=== PATIENT | male | born 1970 | race Hispanic/Latino ===

== ENCOUNTER 2016-08-21 13:16 | Inpatient (IN) | payer MEDICARE ==
[2016-08-21] MEDS ORDERED: PROTONIX IV ONE (13:39)
[2016-08-21] MEDS ORDERED: MORPHINE IV ONE (13:39)
[2016-08-21] MEDS ORDERED: NACL 0.9% 1000 ML 1,000 ML IV ONE (13:40)
[2016-08-21 13:50] LABS: Basophils % (Auto) 0.7 % (0.0-1.8); Eosinophils % (Auto) 0.3 % (0.0-4.3); Hematocrit 27.8 % (35.5-45.6); Hemoglobin 9.1 gm/dl (11.8-15.2); Mean Corpuscular HGB Conc 33 % (32-34); Mean Corpuscular Hemoglobin 31 pg (28-32); Mean Corpuscular Volume 96 fl (84-94); Platelet Count 382 K/mm3 (140-440); Red Blood Count 2.89 M/mm3 (3.65-5.03); Red Cell Distribution Width 15.7 % (13.2-15.2)
[2016-08-21 14:01] LABS: INR 1.07 (0.87-1.13); Partial Thromboplastin Time 24.9 Sec. (24.2-36.6)
[2016-08-21 14:07] LABS: Albumin 2.8 g/dL (3.9-5); Albumin/Globulin Ratio 1.5 %; Alkaline Phosphatase 57 units/L (35-129); Anion Gap 14 mmol/L; Bilirubin,Total < 0.2 mg/dL (0.1-1.2); Blood Urea Nitrogen 21 mg/dL (9-20); Calcium 7.5 mg/dL (8.4-10.2); Carbon Dioxide 26 mmol/L (22-30); Chloride 107.5 mmol/L (98-107); Glucose 124 mg/dL (75-100); Lipase 36 units/L (13-60); Potassium 4.4 mmol/L (3.6-5.0); Sodium 143 mmol/L (137-145); Total Protein 4.7 g/dL (6.3-8.2)
[2016-08-21 14:10] LABS: Alanine Aminotransferase < 5 units/L (7-56)
[2016-08-21] MEDS ORDERED: ZOFRAN ONE (14:12)
[2016-08-21] MEDS ORDERED: NACL ONE (14:16)
[2016-08-21] MEDS ORDERED: ZOFRAN IV ONE ×2 (14:28→18:10)
--- NOTE | 2016-08-21 15:19 | Cat Scan Report ---
FINAL REPORT PROCEDURE: CT ABDOMEN PELVIS W CON TECHNIQUE: Computerized axial tomography of the abdomen and pelvis was performed after the IV injection of iodinated nonionic contrast. HISTORY: Abdominal pain. COMPARISON: CT scan of the abdomen and pelvis dated 07/30/2016. FINDINGS: Visualized lower thorax: No significant abnormality. Liver: Normal size and attenuation. Spleen: Normal size and attenuation. Gallbladder and biliary system: Normal. Pancreas: Normal. Adrenals: Normal. Kidneys: 2 centimeter low-attenuation left renal lesion.. GI tract: Diverticulosis. Normal caliber air-filled appendix. Lymph nodes and mesentery: Stable small perigastric lymph nodes. Vasculature: Mild atherosclerosis. Bladder: Normal. Reproductive organs: Normal. Peritoneum: No free fluid. Musculoskeletal structures: Moderate to severe narrowing of the bilateral hips with osteophytes and subchondral cystic change. Multilevel degenerative changes of the spine. Posterior osteophyte at L2-3. Canal stenosis from L3-L5. Disc bulges at these levels. Other: Bilateral fat filled inguinal hernias. IMPRESSION: No new CT evidence of acute intra abdominal pathology. Colonic diverticulosis. Normal appendix. Low-attenuation left renal lesion unchanged, likely cyst.
--- NOTE | 2016-08-21 15:42 | Emergency Department Report ---
HPI - General Chief Complaint: GI Bleed Time Seen by Provider: 08/21/16 13:27 - HPI HPI: This is a 46-year-old male presents to the emergency department by EMS from home with complaint of chronic but intense abdominal pain that has been going on for months. However the reason the patient called for EMS and came to the emergency department today is the development of nausea and vomiting , along with hematemesis, as well as some bright red blood per rectum. 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 He saw his primary care doctor and was placed on Nexium but it does not appear to be helping with his symptoms. He has a past medical history of osteoarthritis, COPD, GERD, migraine headaches, hypertension and hyperthyroidism. No recent travel or sick contacts at home. He has not taken anything and was not given anything for his symptoms today prior to presentation. ED Past Medical Hx - Past Medical History Hx Hypertension: Yes (FOR 18 YRS) Hx GERD: Yes Hx Arthritis: Yes (osteo) Hx Headaches / Migraines: Yes Hx Psychiatric Treatment: Yes (depression and sleep disorder) Hx COPD: Yes Additional medical history: Hypercholesterolemia, hyperthyroid - Surgical History Additional Surgical History: right ear - Social History Smoking Status: Current Every Day Smoker Substance Use Type: Alcohol - Medications Home Medications: Home Medications Medication Instructions Recorded Confirmed Last Taken Type ALBUTEROL Inhaler [ProAir] 1 puff PO TID PRN 10/31/13 10/03/14 10/02/14 History Fluticasone/Salmeterol [Advair 1 puff PO QDAY 10/31/13 10/03/14 10/02/14 History Diskus 250-50 mcg] Furosemide [Lasix] 20 mg PO BID 10/31/13 10/03/14 10/02/14 History Levothyroxine [Synthroid] 100 mcg PO QDAY 10/31/13 10/03/14 10/02/14 History Lisinopril [Zestril TAB] 40 mg PO QDAY 10/31/13 10/03/14 10/02/14 History QUEtiapine [Seroquel] 300 mg PO QHS 10/31/13 10/03/14 10/02/14 History Simvastatin 40 mg PO QHS 10/31/13 10/03/14 10/02/14 History amLODIPine [Norvasc] 10 mg PO QDAY 10/31/13 10/03/14 10/02/14 History carBAMazepine [Tegretol] 200 mg PO BID 10/31/13 10/03/14 10/02/14 History risperiDONE [Risperdal] 2 mg PO QHS 10/31/13 10/03/14 10/02/14 History HYDROcodone/APAP 10-325 [Tatamy 1 each PO Q6HR PRN #12 tablet 11/01/13 10/03/14 10/01/14 Rx 10-325 mg TAB] Esomeprazole Magnesium [NexIUM] 40 mg PO QDAY 10/01/14 10/03/14 10/02/14 History Ipratropium/Albuterol Sulfate 3 ml IH BID PRN 10/01/14 10/03/14 10/02/14 History [Iprat-Albut 0.5-3(2.5) mg/3 ml] Topiramate [Topamax TAB] 50 mg PO QHS 10/01/14 10/03/14 10/02/14 History carBAMazepine [TEGretol] 200 mg PO Q12HR 10/01/14 10/03/14 10/02/14 History Metoclopramide [Reglan] 10 mg PO Q6H PRN #20 tab 01/11/16 Unknown Rx traMADol [Ultram 50 MG tab] 50 mg PO TID PRN #10 tablet 01/11/16 Unknown Rx ED Review of Systems ROS: Stated complaint: ABDOMINAL PAIN Other details as noted in HPI Comment: All other systems reviewed and negative Constitutional: denies: chills, fever Eyes: denies: eye pain, eye discharge, vision change ENT: denies: ear pain, throat pain Respiratory: denies: cough, shortness of breath, wheezing Cardiovascular: denies: chest pain, palpitations Gastrointestinal: abdominal pain, nausea, vomiting, hematemesis. denies: melena Genitourinary: denies: urgency, dysuria Musculoskeletal: denies: back pain, joint swelling, arthralgia Skin: denies: rash, lesions Neurological: denies: headache, weakness, paresthesias Physical Exam - Physical Exam Vital Signs: Vital Signs 08/21/16 08/21/16 08/21/16 13:06 13:19 13:23 Temperature 98.5 F Pulse Rate 128 H 124 H 120 H Respiratory 17 18 Rate Blood Pressure 116/60 O2 Sat by Pulse 99 99 99 Oximetry 08/21/16 14:00 Temperature Pulse Rate 122 H Respiratory 19 Rate Blood Pressure 80/55 O2 Sat by Pulse 99 Oximetry Physical Exam: GENERAL: The patient is well-developed well-nourished. HEENT: Normocephalic. Atraumatic. Extraocular motions are intact. Patient has moist mucous membranes. Pupils equal reactive to light bilaterally. NECK: Supple. Trachea is midline. CHEST/LUNGS: Clear to auscultation. There is no respiratory distress noted. HEART/CARDIOVASCULAR: Regular. There is mild to moderate tachycardia. There is no gallop rub or murmur. ABDOMEN: Abdomen is soft. Generalized tenderness to palpation of the abdomen. No guarding or rebound tenderness. No peritoneal signs. Patient has normal bowel sounds. There is no abdominal distention. SKIN: There is no rash. There is no edema. There is no diaphoresis. NEURO: The patient is awake, alert, and oriented. The patient is cooperative. The patient has no focal neurologic deficits. The patient has normal speech. MUSCULOSKELETAL: There is no tenderness or deformity. There is no limitation range of motion. There is no evidence of acute injury. RECTAL: There is some mild gross blood seen that is guaiac positive. ED Course Vital Signs 08/21/16 08/21/16 08/21/16 13:06 13:19 13:23 Temperature 98.5 F Pulse Rate 128 H 124 H 120 H Respiratory 17 18 Rate Blood Pressure 116/60 O2 Sat by Pulse 99 99 99 Oximetry 08/21/16 14:00 Temperature Pulse Rate 122 H Respiratory 19 Rate Blood Pressure 80/55 O2 Sat by Pulse 99 Oximetry - Reevaluation(s) Reevaluation #1: Patient later told the admitting hospitalist, Dr. Dominguez, that he had taken about 24 packs of the powder in the past 24 hours. 08/21/16 15:43 ED Medical Decision Making - Lab Data Result diagrams: 08/21/16 13:38 08/21/16 13:38 - Radiology Data Radiology results: report reviewed CT of the abdomen and pelvis with IV contrast shows no new CT evidence of acute intra-abdominal pathology. Colonic diverticulosis. Normal appendix. - Medical Decision Making 46-year-old male presents with abdominal pain, bright red blood per rectum and some hematemesis. Patient's labs are mostly unremarkable other than a hemoglobin of 9.2. It is not a level that requires transfusion but may be dropping more. CT was done of his abdomen and pelvis with IV contrast that shows some colonic diverticulosis without diverticulitis. Otherwise there is no acute intra-abdominal or intrapelvic pathology seen. Patient remains with some tachycardia and had a bout of hypotension that has responded to IV fluid resuscitation. For these reasons the patient will be admitted to hospital for further evaluation and GI consultation. The admitting hospitalist when spoke with the patient and the patient then admitted that he took 24 packets of Goody powder in the past day trying to treat his pain. This may be the cause of the patient's bleeding as he may have some level of ulceration. - Differential Diagnosis gastric or duodenal ulcer, diverticulosis, colitis Critical Care Time: No Critical care attestation.: If time is entered above; I have spent that time in minutes in the direct care of this critically ill patient, excluding procedure time. ED Disposition Clinical Impression: Rectal bleeding Hematemesis Qualifiers: Nausea presence: with nausea Qualified Code(s): K92.0 - Hematemesis; R11.0 - Nausea GI bleed Qualifiers: GI bleed type/associated pathology: unspecified gastrointestinal hemorrhage type Qualified Code(s): K92.2 - Gastrointestinal hemorrhage, unspecified Abdominal pain Qualifiers: Abdominal location: generalized Qualified Code(s): R10.84 - Generalized abdominal pain Diverticulosis Qualifiers: Diverticulosis site: diverticulosis of large intestine Diverticulosis bleeding : diverticulosis with bleeding Qualified Code(s): K57.31 - Diverticulosis of large intestine without perforation or abscess with bleeding Disposition: OP ADMITTED IP TO THIS HOSP Is pt being admited?: Yes Does the pt Need Aspirin: No Condition: Stable Forms: Accompanied Note Time of Disposition: 15:49
--- NOTE | 2016-08-21 16:41 | Event Note ---
Date: 08/21/16 See H/p in reports Acute GI Bleed Near Syncope Goody powder packets 24 in 24 hours. PUD-a high possibility GI consult for EGD HTN Hypothyroidism GERD ROBERT - on xanax Lisinopril held bcoz of orthostasis
[2016-08-21] MEDS ORDERED: DUONEB 0.5 MG-3 MG/3 ML SOLN IH PRN (16:42)
[2016-08-21] MEDS ORDERED: PROAIR IH PRN (16:42)
[2016-08-21] MEDS ORDERED: REGLAN PO PRN (16:42)
[2016-08-21] MEDS ORDERED: ULTRAM PO PRN (16:42)
[2016-08-21] MEDS ORDERED: NON-FORMULARY (Fluticasone/Salmeterol [Advair Diskus 250-50 Mcg] 1 PUFF) PO SCH (16:45)
[2016-08-21] MEDS ORDERED: NON-FORMULARY (Esomeprazole Magnesium [Nexium] 40 MG) PO SCH (16:45)
[2016-08-21] MEDS ORDERED: DULCOLAX PR PRN (16:50)
[2016-08-21] MEDS ORDERED: MILK OF MAGNESIA PO PRN (16:50)
[2016-08-21] MEDS ORDERED: TYLENOL PO PRN (16:50)
[2016-08-21] MEDS ORDERED: PROVENTIL IH PRN (16:56)
[2016-08-21] MEDS ORDERED: NON-FORMULARY (Xanax Tab 1 MG) PO PRN (17:27)
[2016-08-21] MEDS ORDERED: XANAX PO PRN (17:36)
[2016-08-21] MEDS ORDERED: NACL 0.9% 1000 ML 1,000 ML ONE (17:44)
[2016-08-21] MEDS: PROTONIX 80 MG in NACL 0.9% 100 ML IV SCH (18:13)
[2016-08-21] MEDS ORDERED: NACL 0.9% 500 ML 500 ML IV ONE (18:39)
[2016-08-21] MEDS ORDERED: NACL 0.9% 1000 ML IV SCH (19:00)
[2016-08-21] MEDS: DILAUDID IV PRN ×2 (19:41→23:00)
--- NOTE | 2016-08-21 19:55 | History and Physical Report ---
CHIEF COMPLAINT: Acute abdominal pain since morning, more so for one month and also melanotic stools since a.m. HISTORY OF PRESENT ILLNESS: A 46-year-old male comes to the ER by EMS. He complains of intense abdominal pain in the epigastric region. It has been going on for months, but more so for today. Also, nausea and vomiting along with hemetemesis as well as some bright red blood per rectum. 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 The patient was placed on Nexium by his primary care physician. Also, patient took 24 packets of Goody powder over the last 24 hours. No recent travel. No fever. No chills. Feels lightheaded. Epigastric pain which is about 10 on a scale of 1 to 10. Also melenotic stools and hematemesis. PAST MEDICAL HISTORY: Significant for hypertension, gastroesophageal reflux disease, osteoarthritis, migraine headaches, depression and sleep disorder, COPD, hypercholesterolemia, hypothyroidism. PAST SURGICAL HISTORY: Right ear surgery. SOCIAL HISTORY: Smokes about a pack a day. He took 24 Goody powder in the last 24 hours for abdominal pain. CURRENT MEDICATIONS: Albuterol inhaler 2 puffs q.i.d., Flovent Advair 250/50 one puff b.i.d., Lasix 20 mg p.o. b.i.d., Synthroid 100 mcg p.o. daily, Zestril 40 mg p.o. daily, Seroquel 300 mg p.o. daily, simvastatin 40 mg p.o. daily, amlodipine 10 mg p.o. daily, Tegretol 200 mg twice a day, Risperdal 2 mg p.o. at bedtime, [place] one tablet every 6 hours p.r.n., Nexium 40 mg p.o. daily, DuoNeb 3 mL b.i.d., Topamax 50 mg p.o. at bedtime, Tegretol 200 mg p.o. every 12 hours, Reglan 10 mg p.o. every 6 hours., tramadol 50 mg three times a day. REVIEW OF SYSTEMS: Significant for epigastric pain, which is severe and also mild hemetemesis and melanotic stools and being lightheaded. Otherwise, review of systems is essentially negative. PHYSICAL EXAMINATION: GENERAL: A middle-aged male, lying in bed comfortably. VITAL SIGNS: Blood pressure is 80/55 and 116/60 and 116/60 is the first blood pressure. Temperature 98.5, pulse is 124, respiratory rate is 17. HEENT: Slightly pale mucous membranes. Tongue moist. NECK: Supple. No lymphadenopathy. No thyromegaly. LUNGS: Clear to auscultation and percussion. Good air entry. CARDIOVASCULAR: S1, S2 heard. No gallop, no murmur, no rub. Apical impulse in left fifth intercostal space and midclavicular line. ABDOMEN: Soft and benign. No hepatosplenomegaly. No guarding. No rigidity. Hernial orifices are normal. EXTREMITIES: Good pedal pulses. No pedal edema. CENTRAL NERVOUS SYSTEM: Alert and oriented x 4. Nonfocal exam. LABORATORY DATA: White count is 9000, H and H is 9.1 and 27.8, platelet count is 382,000. Sodium is 143, potassium is 4.4, chloride is 107.5, bicarbonate is 23, BUN and creatinine is 21 and 0.2, glucose is 124. CT of the abdomen shows no acute abdominal pathology, colonic diverticulosis. MEDICAL DECISION MAKING AND EMERGENCY DEPARTMENT COURSE: The patient was given IV fluids. Hemoglobin 9.2, hence not transfused. Also, the patient is orthostatic. ASSESSMENT AND PLAN: 1. Acute gastrointestinal bleed. The patient is started on IV Protonix and IV fluids, transfuse if necessary. Hemoglobin and hematocrit to be monitored every 8 hours and also GI consult with Dr. Vasquez requested. The patient otherwise is stable at this point. The patient was advised not to take Goody powder in the future. 2. Gastroesophageal reflux disease. Continue Nexium 40 mg daily. 3. Asthma/chronic obstructive pulmonary disease. Continue Advair Diskus 250/50 one puff b.i.d. Also, take ____ for a possible seizure disorder. 4. Chronic obstructive pulmonary disease. Continue DuoNeb. 5. Hypothyroidism. Continue Synthroid 100 mcg p.o. daily. 6. Hypertension. Continue lisinopril 40 mg p.o. daily. Also, amlodipine 10 mg p.o. daily. 7. Psychiatric disorder and agitation. Risperdal 2 mg p.o. at bedtime. 8. Chronic pain. The patient is on Dilaudid 0.5. We will hold the tramadol. 9. Deep venous thrombosis prophylaxis. No Lovenox. SCDs only. JOB# [id number] JAEL/RA
[2016-08-21] MEDS: PULMICORT IH SCH (20:43)
[2016-08-21] MEDS: BROVANA NEBU IH SCH (20:43)
--- NOTE | 2016-08-21 21:43 | Admit Criteria Form ---
Admission Criteria Documentation: GASTROINTESTINAL BLEEDING, LOWER Clinical Indications for Admission to Inpatient Care ( Place 'X' for any and all applicable criteria): Admission is indicated for ANY ONE of the following(1)(2)(3)(4)(5): [X ]I. Active gross bleeding per rectum [ ]II. Inpatient admission required rather than observation care (Also use Gastrointestinal Bleeding, Lower: Observation Care as appropriate) because of ANY ONE of the following: [ ]a) Hemodynamic instability that is severe or persistent [ ]b) Anemia requiring inpatient admission as indicated by ALL of the following: [ ]1) Presence of significant clinical finding indicated by ANY ONE of the following: [ ]A. Tachycardia for age [ ]B. Orthostatic vital sign changes [ ]C. Cognitive impairment [ ]D. Heart failure [ ]E. Chest pain [ ]F. Exertional dyspnea [ ]G. Other findings suggesting inadequate perfusion (eg, peripheral or myocardial ischemia, end organ dysfunction) [ ]2) Initial (eg, emergency department, observation care) treatment with transfusion or volume replacement is judged inappropriate (due to severity of the finding) or has been ineffective [ ]c) Severe pain requiring acute inpatient management [ ]d) Absent bowel sounds with complete ileus [ ]e) Signs of intestinal obstruction or peritonitis [A] [ ]f) High-risk low platelet count [ ]g) Severe electrolyte abnormalities requiring inpatient care [ ]h) Acute renal failure [ ]i) High fever or infection requiring inpatient admission as indicated by ANY ONE of the following(8)(9): [ ]1) Appropriate outpatient or observation care antimicrobial treatment unavailable, not effective, or not feasible Documented bacteremia [ ]2) Documented bacteremia [ ]3) Temperature greater than 104.9 degrees F ( 40.5 degrees C) (oral) [ ]4) Temperature greater than 103.1 degrees F ( 39.5 degrees C) (oral) or less than 96.8 degrees F (36 degrees C) (rectal) that does not respond to all emergency treatment measures [ ]j) IV fluid to replace significant ongoing losses ( greater than 3 L/m2 per day) [ ]k) Immediate inpatient surgery needed [ ]l) Parenteral nutrition regimen that must be implemented on inpatient basis [ ]m) Other condition, treatment or monitoring requiring inpatient admission [ ]III. Unstable comorbid illness (renal, hepatic, pulmonary, hematologic, neurologic, or cardiac) [ ]IV. Failure to control bleeding after colonoscopy [ ]V. Coagulopathy [ ]. Suspected or known ischemic colitis(6) [ ]VII. Previous aortic graft placement or known aortic aneurysm Extended stay beyond goal length of stay may be needed for(3)(4)(28): [ ]a) Emergency surgery [ ]b) Coagulation abnormalities(26) [ ]c) Recurrent or persistent bleeding, continued vital sign instability(27)( 28) [ ]d) Active comorbidities (eg, renal insufficiency, heart failure, pre- existing liver disease) The original [employer] content created by [employer] has been revised. The portions of the content which have been revised are identified through the use of italic text or in bold, and [facility] has neither reviewed nor approved the modified material. All other unmodified content is copyright [facility]. Please see references footnoted in the original [employer] edition 2016 Admission Criteria Met: Yes
[2016-08-21] MEDS ORDERED: NACL 0.9% 250ML 250 ML ONE (21:55)
[2016-08-21] MEDS: RisperDAL PO SCH (22:00)
[2016-08-21] MEDS ORDERED: NON-FORMULARY (Topiramate [Topamax Tab] 50 MG) PO SCH (22:00)
[2016-08-21] MEDS ORDERED: NON-FORMULARY (Risperidone [Risperdal] 2 MG) PO SCH (22:00)
[2016-08-21] MEDS: LASIX PO SCH (22:00)
[2016-08-21] MEDS: TOPAMAX PO SCH (22:00)
[2016-08-22] MEDS: SYNTHROID PO SCH (06:00)
[2016-08-22] MEDS: PULMICORT IH SCH ×2 (07:23→19:58)
[2016-08-22] MEDS: BROVANA NEBU IH SCH ×2 (07:24→19:58)
[2016-08-22 08:01] LABS: Basophils % (Auto) 0.6 % (0.0-1.8); Eosinophils % (Auto) 0.8 % (0.0-4.3); Hemoglobin 9.6 gm/dl (11.8-15.2); Mean Corpuscular HGB Conc 33 % (32-34); Mean Corpuscular Hemoglobin 31 pg (28-32); Mean Corpuscular Volume 94 fl (84-94); Platelet Count 301 K/mm3 (140-440); Red Blood Count 3.09 M/mm3 (3.65-5.03); Red Cell Distribution Width 16.6 % (13.2-15.2); White Blood Count 8.8 K/mm3 (4.5-11.0)
[2016-08-22 08:17] LABS: Alanine Aminotransferase 5 units/L (7-56); Albumin/Globulin Ratio 1.7 %; Alkaline Phosphatase 52 units/L (35-129); Anion Gap 15 mmol/L; Bilirubin,Total 0.2 mg/dL (0.1-1.2); Blood Urea Nitrogen 14 mg/dL (9-20); Calcium 7.6 mg/dL (8.4-10.2); Carbon Dioxide 26 mmol/L (22-30); Chloride 102.6 mmol/L (98-107); Glucose 124 mg/dL (75-100); Potassium 3.7 mmol/L (3.6-5.0); Sodium 140 mmol/L (137-145); Total Protein 4.8 g/dL (6.3-8.2)
--- NOTE | 2016-08-22 09:50 | Progress Note ---
Assessment and Plan Assessment and plan: Acute GI bleed likely upper GI. Continue Protonix drip. Continue H&H every 8 hours. Last hemoglobin 9.6 after [address] To , GI to see. Anemia due to acute blood loss. Hemoglobin 9.1 on admission now 9.6 after 2 units PRBC. May transfuse further if hemoglobin keeps dropping or if any further bleeding. Hypertension. BP stable. Hypothyroidism. Continue Levothyroxine. COPD stable. Full code status History Interval history: patient presents with vomiting hematemesis and bloody stools, He feels better today, Last hematemesis was last night, last bloody stool last night Hospitalist Physical - Physical exam Narrative exam: Gen: Not in acute distress HEENT: Normocephalic, atraumatic Neck :supple, no JVD Lungs: Crackles left upper lung field, no wheeze Heart S1 and S2 regular, no murmurs no gallop Abdomen:soft, tender epigastric region,, nondistended, normal bowel sounds Ext: No edema, no clubbing or cyanosis Neuro: Awake alert oriented x 3, no focal signs - Constitutional Vitals: Temp Pulse Resp BP Pulse Ox 98.5 F 104 H 20 124/72 97 08/22/16 04:00 08/22/16 07:45 08/22/16 07:45 08/22/16 04:00 08/22/16 07:48 Results - Labs CBC & Chem 7: 08/22/16 07:20 08/22/16 07:20 Labs: Laboratory Last Values WBC 8.8 K/mm3 (4.5-11.0) 08/22/16 07:20 RBC 3.09 M/mm3 (3.65-5.03) L 08/22/16 07:20 Hgb 9.6 gm/dl (11.8-15.2) L 08/22/16 07:20 Hct 29.0 % (35.5-45.6) L 08/22/16 07:20 MCV 94 fl (84-94) 08/22/16 07:20 MCH 31 pg (28-32) 08/22/16 07:20 MCHC 33 % (32-34) 08/22/16 07:20 RDW 16.6 % (13.2-15.2) H 08/22/16 07:20 Plt Count 301 K/mm3 (140-440) 08/22/16 07:20 Lymph % (Auto) 22.3 % (13.4-35.0) 08/22/16 07:20 [place] % (Auto) 8.5 % (0.0-7.3) H 08/22/16 07:20 Eos % (Auto) 0.8 % (0.0-4.3) 08/22/16 07:20 Baso % (Auto) 0.6 % (0.0-1.8) 08/22/16 07:20 Lymph # 2.0 K/mm3 (1.2-5.4) 08/22/16 07:20 [place] # 0.7 K/mm3 (0.0-0.8) 08/22/16 07:20 Eos # 0.1 K/mm3 (0.0-0.4) 08/22/16 07:20 Baso # 0.0 K/mm3 (0.0-0.1) 08/22/16 07:20 Seg Neutrophils % 67.8 % (40.0-70.0) 08/22/16 07:20 Seg Neutrophils # 6.0 K/mm3 (1.8-7.7) 08/22/16 07:20 PT 13.8 Sec. (12.2-14.9) 08/21/16 13:38 INR 1.07 (0.87-1.13) 08/21/16 13:38 APTT 24.9 Sec. (24.2-36.6) 08/21/16 13:38 Sodium 140 mmol/L (137-145) 08/22/16 07:20 Potassium 3.7 mmol/L (3.6-5.0) 08/22/16 07:20 Chloride 102.6 mmol/L (98-107) 08/22/16 07:20 Carbon Dioxide 26 mmol/L (22-30) 08/22/16 07:20 Anion Gap 15 mmol/L 08/22/16 07:20 BUN 14 mg/dL (9-20) 08/22/16 07:20 Creatinine 0.5 mg/dL (0.8-1.5) L D 08/22/16 07:20 Estimated GFR > 60 ml/min 08/22/16 07:20 BUN/Creatinine Ratio 28.00 % 08/22/16 07:20 Glucose 124 mg/dL (75-100) H 08/22/16 07:20 Lactic Acid 1.1 mmol/L (0.7-2.0) 08/21/16 13:38 Calcium 7.6 mg/dL (8.4-10.2) L 08/22/16 07:20 Total Bilirubin 0.2 mg/dL (0.1-1.2) 08/22/16 07:20 AST 7 units/L (5-40) 08/22/16 07:20 ALT 5 units/L (7-56) L 08/22/16 07:20 Alkaline Phosphatase 52 units/L (35-129) 08/22/16 07:20 Total Protein 4.8 g/dL (6.3-8.2) L 08/22/16 07:20 Albumin 3.0 g/dL (3.9-5) L 08/22/16 07:20 Albumin/Globulin Ratio 1.7 % 08/22/16 07:20 Lipase 36 units/L (13-60) 08/21/16 13:38 Salicylates 2.3 mg/dL (2.8-20.0) L 08/21/16 16:48 Blood Type A POSITIVE 08/21/16 13:38 Antibody Screen Negative 08/21/16 13:38 Crossmatch See Detail 08/21/16 13:38
[2016-08-22] MEDS ORDERED: SYNTHROID PO SCH (10:00)
[2016-08-22] MEDS ORDERED: PROTONIX PO SCH (10:00)
[2016-08-22] MEDS ORDERED: ZESTRIL PO SCH ×2 (10:00)
[2016-08-22] MEDS: PROTONIX 80 MG in NACL 0.9% 100 ML IV SCH ×2 (10:11→18:30)
[2016-08-22] MEDS: DILAUDID IV PRN ×4 (10:12→22:25)
[2016-08-22] MEDS: NORVASC PO SCH (10:13)
[2016-08-22] MEDS: LASIX PO SCH ×2 (10:13→22:33)
[2016-08-22] MEDS: D5NS 1,000 ML IV SCH (14:25)
[2016-08-22 16:04] LABS: Hematocrit 29.8 % (35.5-45.6)
[2016-08-22] MEDS: ZOFRAN IV PRN (18:29)
[2016-08-22] MEDS: RisperDAL PO SCH (22:29)
[2016-08-22] MEDS: TOPAMAX PO SCH (22:34)
[2016-08-23 01:14] LABS: Hematocrit 26.8 % (35.5-45.6)
[2016-08-23] MEDS: SYNTHROID PO SCH (05:57)
[2016-08-23] MEDS: DILAUDID IV PRN ×5 (05:58→22:30)
[2016-08-23] MEDS: PULMICORT IH SCH ×2 (08:22→20:23)
[2016-08-23] MEDS: BROVANA NEBU IH SCH ×2 (08:22→20:23)
[2016-08-23] MEDS: NORVASC PO SCH (10:30)
[2016-08-23] MEDS: LASIX PO SCH ×2 (10:31→22:30)
--- NOTE | 2016-08-23 16:08 | Progress Note ---
Assessment and Plan Assessment and plan: Acute upper GI bleed. Continue Protonix drip. Continue H&H every 8 hours. Last hemoglobin 9.0 Dr. To , GI to see. For EGD. He was transfused 2 Units PRBC Anemia due to acute blood loss. May transfuse further if hemoglobin keeps dropping or if any further bleeding. Hypertension. BP stable. Hypothyroidism. Continue Levothyroxine. COPD stable. Full code status History Interval history: patient presents with vomiting hematemesis and bloody stools, No more hematemesis or bloody stool since admitted Hospitalist Physical - Physical exam Narrative exam: Gen: Not in acute distress HEENT: Normocephalic, atraumatic Neck :supple, no JVD Lungs: Crackles left upper lung field, no wheeze Heart S1 and S2 regular, no murmurs no gallop Abdomen:soft, mild tender epigastric region,, nondistended, normal bowel sounds Ext: No edema, no clubbing or cyanosis Neuro: Awake alert oriented x 3, no focal signs - Constitutional Vitals: Temp Pulse Resp BP Pulse Ox 97.6 F 86 18 135/85 100 08/23/16 12:10 08/23/16 12:10 08/23/16 14:56 08/23/16 12:10 08/23/16 12:10 Results - Labs CBC & Chem 7: 08/23/16 00:37 08/22/16 07:20 Labs: Laboratory Last Values WBC 8.8 K/mm3 (4.5-11.0) 08/22/16 07:20 RBC 3.09 M/mm3 (3.65-5.03) L 08/22/16 07:20 Hgb 9.0 gm/dl (11.8-15.2) L 08/23/16 00:37 Hct 26.8 % (35.5-45.6) L 08/23/16 00:37 MCV 94 fl (84-94) 08/22/16 07:20 MCH 31 pg (28-32) 08/22/16 07:20 MCHC 33 % (32-34) 08/22/16 07:20 RDW 16.6 % (13.2-15.2) H 08/22/16 07:20 Plt Count 301 K/mm3 (140-440) 08/22/16 07:20 Lymph % (Auto) 22.3 % (13.4-35.0) 08/22/16 07:20 [place] % (Auto) 8.5 % (0.0-7.3) H 08/22/16 07:20 Eos % (Auto) 0.8 % (0.0-4.3) 08/22/16 07:20 Baso % (Auto) 0.6 % (0.0-1.8) 08/22/16 07:20 Lymph # 2.0 K/mm3 (1.2-5.4) 08/22/16 07:20 [place] # 0.7 K/mm3 (0.0-0.8) 08/22/16 07:20 Eos # 0.1 K/mm3 (0.0-0.4) 08/22/16 07:20 Baso # 0.0 K/mm3 (0.0-0.1) 08/22/16 07:20 Seg Neutrophils % 67.8 % (40.0-70.0) 08/22/16 07:20 Seg Neutrophils # 6.0 K/mm3 (1.8-7.7) 08/22/16 07:20 PT 13.8 Sec. (12.2-14.9) 08/21/16 13:38 INR 1.07 (0.87-1.13) 08/21/16 13:38 APTT 24.9 Sec. (24.2-36.6) 08/21/16 13:38 Sodium 140 mmol/L (137-145) 08/22/16 07:20 Potassium 3.7 mmol/L (3.6-5.0) 08/22/16 07:20 Chloride 102.6 mmol/L (98-107) 08/22/16 07:20 Carbon Dioxide 26 mmol/L (22-30) 08/22/16 07:20 Anion Gap 15 mmol/L 08/22/16 07:20 BUN 14 mg/dL (9-20) 08/22/16 07:20 Creatinine 0.5 mg/dL (0.8-1.5) L D 08/22/16 07:20 Estimated GFR > 60 ml/min 08/22/16 07:20 BUN/Creatinine Ratio 28.00 % 08/22/16 07:20 Glucose 124 mg/dL (75-100) H 08/22/16 07:20 POC Glucose 107 (70-105) H 08/23/16 08:10 Lactic Acid 1.1 mmol/L (0.7-2.0) 08/21/16 13:38 Calcium 7.6 mg/dL (8.4-10.2) L 08/22/16 07:20 Total Bilirubin 0.2 mg/dL (0.1-1.2) 08/22/16 07:20 AST 7 units/L (5-40) 08/22/16 07:20 ALT 5 units/L (7-56) L 08/22/16 07:20 Alkaline Phosphatase 52 units/L (35-129) 08/22/16 07:20 Total Protein 4.8 g/dL (6.3-8.2) L 08/22/16 07:20 Albumin 3.0 g/dL (3.9-5) L 08/22/16 07:20 Albumin/Globulin Ratio 1.7 % 08/22/16 07:20 Lipase 36 units/L (13-60) 08/21/16 13:38 Salicylates 2.3 mg/dL (2.8-20.0) L 08/21/16 16:48 Blood Type A POSITIVE 08/21/16 13:38 Antibody Screen Negative 08/21/16 13:38 Crossmatch See Detail 08/21/16 13:38
[2016-08-23] MEDS: D5NS 1,000 ML IV SCH (18:50)
[2016-08-23] MEDS: ZOFRAN IV PRN (18:50)
[2016-08-23] MEDS: RisperDAL PO SCH (22:30)
[2016-08-23] MEDS: TOPAMAX PO SCH (22:30)
--- NOTE | 2016-08-24 00:10 | Gastroenterology Consultation ---
History of Present Illness - Reason for Consult Consult date: 08/23/16 Diffuse abdominal pain, acute gastrointestinal bleeding. Requesting physician: SIRISHA MONTES - History of Present Illness Patient is a 46-year-old male who presented with a history of diffuse abdominal pain. The pain is described as recurrent. The character of the pain is described as crampy episodic lasting a few seconds to minutes and then becoming relieved. Patient states that he has been having a gnawing pain which has persisted over a sustained period of time. Sometimes it occurs rather spontaneously and then becomes just as suddenly relieved. Patient states that lately however he has been taking non steroidal's because of pain. With this episode, the pain began and following a sustained bouts of the pain, patient developed episodes of nausea vomiting. With recurrent nausea vomiting, he again developed hematemesis and also developed melena. Since he presented however he has not had any overt episodes although he states that he continues to notice blood in his stool. Since his admission, patient reports some interval improvement in his symptoms overall. For the most part although the pain is fairly diffuse, it has been much more epigastric in location. There is no particular periodicity to the pain, there are no particular exacerbating or relieving factors. Most notably preceding this presentation, patient states that he has been taking significant amounts of Goody's powder in particular. Past History Past Medical History: hypertension, hypothyroidism, other (back pain) Past Surgical History: No surgical history Social history: smoking, alcohol abuse Medications and Allergies Allergies Allergy/AdvReac Type Severity Reaction Status Date / Time Penicillins Allergy Unknown Verified 10/31/13 18:38 Home Medications Medication Instructions Recorded Confirmed Last Taken Type ALBUTEROL Inhaler [ProAir] 1 puff PO TID PRN 10/31/13 08/21/16 10/02/14 History Fluticasone/Salmeterol [Advair 1 puff PO QDAY 10/31/13 08/21/16 10/02/14 History Diskus 250-50 mcg] Furosemide [Lasix] 20 mg PO BID 10/31/13 08/21/16 10/02/14 History Levothyroxine [Synthroid] 100 mcg PO QDAY 10/31/13 08/21/16 10/02/14 History Lisinopril [Zestril TAB] 40 mg PO QDAY 10/31/13 08/21/16 10/02/14 History QUEtiapine [Seroquel] 300 mg PO QHS 10/31/13 08/21/16 10/02/14 History amLODIPine [Norvasc] 10 mg PO QDAY 10/31/13 08/21/16 10/02/14 History carBAMazepine [Tegretol] 200 mg PO BID 10/31/13 08/21/16 10/02/14 History risperiDONE [Risperdal] 2 mg PO QHS 10/31/13 08/21/16 10/02/14 History HYDROcodone/APAP 10-325 [Rowe 1 each PO Q6HR PRN #12 tablet 11/01/13 08/21/16 10/01/14 Rx 10-325 mg TAB] Esomeprazole Magnesium [NexIUM] 40 mg PO QDAY 10/01/14 08/21/16 10/02/14 History Ipratropium/Albuterol Sulfate 3 ml IH BID PRN 10/01/14 08/21/16 10/02/14 History [Iprat-Albut 0.5-3(2.5) mg/3 ml] Topiramate [Topamax TAB] 50 mg PO QHS 10/01/14 08/21/16 10/02/14 History carBAMazepine [TEGretol] 200 mg PO Q12HR 10/01/14 08/21/16 10/02/14 History Metoclopramide [Reglan] 10 mg PO Q6H PRN #20 tab 01/11/16 08/21/16 Unknown Rx traMADol [Ultram 50 MG tab] 50 mg PO TID PRN #10 tablet 01/11/16 08/21/16 Unknown Rx Pravastatin 1 mg PO QHS 08/21/16 08/21/16 Unknown History Xanax TAB 1 mg PO TID PRN 08/21/16 08/21/16 Unknown History Active Meds: Active Medications Acetaminophen (Tylenol) 650 mg PO Q4H PRN PRN Reason: Pain MILD(1-3)/Fever >100.5/LUCAS Albuterol (Proventil) 2.5 mg IH Q4HRT PRN PRN Reason: Shortness Of Breath Alprazolam (Xanax) 1 mg PO TID PRN PRN Reason: Anxiety Last Admin: 01/08/17 22:42 Dose: 1 mg Amlodipine Besylate (Norvasc) 10 mg PO QDAY [facility] Last Admin: 08/23/16 10:30 Dose: 10 mg Arformoterol Tartrate (Brovana Nebu) 15 mcg IH Q12HRT [facility] Last Admin: 08/23/16 20:23 Dose: 15 mcg Bisacodyl (Dulcolax) 10 mg [place] QDAY PRN PRN Reason: Constipation unrelieved by [facility] [place] [place] Budesonide (Pulmicort) 0.5 mg IH Q12HRT [facility] Last Admin: 08/23/16 20:23 Dose: 0.5 mg Carbamazepine (Tegretol) 200 mg PO BID [facility] Last Admin: 08/23/16 22:30 Dose: 200 mg Furosemide (Lasix) 20 mg PO BID [facility] Last Admin: 08/23/16 22:30 Dose: 20 mg Hydromorphone HCl (Dilaudid) 1 mg IV Q3H PRN PRN Reason: Pain , Severe (7-10) Last Admin: 08/23/16 22:30 Dose: 1 mg Dextrose/Sodium Chloride (D5ns) 1,000 mls @ 100 mls/hr IV DIRECT [facility] Last Admin: 08/23/16 18:50 Dose: 100 mls/hr Pantoprazole Sodium 80 mg/ (Sodium Chloride) 100 mls @ 10 mls/hr IV DIRECT [facility] PRN Reason: 8 MG/HR Levothyroxine Sodium (Synthroid) 100 mcg PO DAILY@0600 [facility] Last Admin: 08/23/16 05:57 Dose: 100 mcg Magnesium Hydroxide (Milk Of Magnesia) 30 ml PO Q4H PRN PRN Reason: Constipation Metoclopramide HCl (Reglan) 10 mg PO Q6H PRN PRN Reason: Nausea And Vomiting Ondansetron HCl (Zofran) 4 mg IV Q8H PRN PRN Reason: N/V unrelieved by Reglan Last Admin: 08/22/16 18:29 Dose: 4 mg Quetiapine Fumarate (Seroquel) 300 mg PO QHS [facility] Last Admin: 08/23/16 22:30 Dose: 300 mg Risperidone (Risperdal) 2 mg PO QHS [facility] Last Admin: 08/23/16 22:30 Dose: 2 mg Sodium Chloride (Nacl 0.9% 1000 Ml) 999 ml IV NOW [facility] Topiramate (Topamax) 50 mg PO QHS [facility] Last Admin: 08/23/16 22:30 Dose: 50 mg Tramadol HCl (Ultram) 50 mg PO TID PRN PRN Reason: Pain Review of Systems - Review of Systems Constitutional: anorexia, fatigue, poor appetite, chronic pain, no weight loss, no fever, no chills Eyes: no change in vision, no double vision, no excessive tearing, no pain, no discharge, no itching Ears, Nose, Throat: no decreased hearing, no difficulty swallowing, no epistaxis , no hoarseness, no mouth pain Breasts: deferred Cardiovascular: no chest pain, no edema, no palpitations, no rapid/irregular heart beat, no shortness of breath, no syncope Respiratory: no cough, no shortness of breath, no wheezing, no home oxygen Gastrointestinal: abdominal pain, nausea, vomiting, hematemesis, coffee ground emesis, melena, loss of appetite, dyspepsia/bloating Rectal: no pain, no incontinence, no itching, no flatulence Male Genitourinary: deferred Musculoskeletal: no gait dysfunction, no joint pain, no muscle pain, no muscle weakness Integumentary: no rash, no pruritis, no jaundice Neurological: no head injury, no paralysis, no weakness, no parasthesias, no memory loss, no changes in smell/taste, no gait dysfunction, no motor disturbance, no sensory deficit Psychiatric: anxiety, depression, no suicidal ideation Endocrine: no cold intolerance, no heat intolerance Hematologic/Lymphatic: no easy bruising, no easy bleeding, no lymphadenopathy Allergic/Immunologic: no wheezing, no angioedema Exam - Constitutional Vital Signs: Temp Pulse Resp BP Pulse Ox 98.5 F 98 H 16 140/88 96 08/23/16 20:00 08/23/16 20:33 08/23/16 20:33 08/23/16 20:00 08/23/16 20:25 General appearance: no acute distress, well-nourished, obese - EENT Eyes: PERRL, EOM intact ENT: hearing intact, clear oral mucosa, no oropharyngeal erythema, no thrush, no ulcerations - Neck Neck: supple, normal ROM, no rigidity, no enlarged thyroid, no masses or JVD, no cervical LAD, no carotid bruits, no other - Respiratory Respiratory effort: normal Respiratory: bilateral: CTA, negative: diminished, rales, rhonchi, wheezing, other - Breasts Breasts: deferred - Cardiovascular Rhythm: regular Heart Sounds: Present: S1 & S2. Absent: gallop, systolic murmur, diastolic murmur Extremities: no ischemia, No edema, Full ROM Extremity abnormal: edema - Gastrointestinal General gastrointestinal: Present: soft, non-tender, non-distended, normal bowel sounds. Absent: tender, hypoactive bowel sounds, hepatomegaly, splenomegaly Rectal Exam: deferred - Genitourinary Male Genitourinary: deferred - Neurologic Neurological: alert and oriented x3, strength equal bilaterally - Psychiatric Psychiatric: appropriate mood/affect, intact judgment & insight, cooperative - Labs CBC & Chem 7: 08/23/16 00:37 08/22/16 07:20 Lab Results: Laboratory Results - last 24 hr 08/23/16 08/23/16 00:37 08:10 Hgb 9.0 L Hct 26.8 L POC Glucose 107 H Assessment and Plan Abdominal pain Acute gastrointestinal bleeding History of constipation progressive today. Plan: Continue proton pump inhibitors. Monitor hemoglobin and hematocrit. Schedule patient for endoscopic assessment in a.m. Continue fluid resuscitation. Discussion: Regarding patient's presentation, an upper endoscopy should be done to rule out non steroidal-induced mucosal injury. However it also appears the patient should have a colonoscopy to be done in a reasonable time as he has not done so in the past, given his current presentation
[2016-08-24] MEDS: PROTONIX 80 MG in NACL 0.9% 100 ML IV SCH ×2 (01:40→13:21)
[2016-08-24] MEDS: DILAUDID IV PRN ×3 (03:15→12:35)
[2016-08-24 05:44] LABS: Hematocrit 27.1 % (35.5-45.6); Hemoglobin 9.1 gm/dl (11.8-15.2); Mean Corpuscular HGB Conc 34 % (32-34); Mean Corpuscular Hemoglobin 32 pg (28-32); Mean Corpuscular Volume 94 fl (84-94); Platelet Count 277 K/mm3 (140-440); Red Blood Count 2.87 M/mm3 (3.65-5.03); Red Cell Distribution Width 15.6 % (13.2-15.2); White Blood Count 6.2 K/mm3 (4.5-11.0)
[2016-08-24] MEDS: SYNTHROID PO SCH (05:56)
[2016-08-24] MEDS: ZOFRAN IV PRN (06:20)
[2016-08-24] MEDS: BROVANA NEBU IH SCH (07:44)
[2016-08-24] MEDS: PULMICORT IH SCH (07:44)
[2016-08-24] MEDS: LASIX PO SCH (10:16)
[2016-08-24] MEDS: NORVASC PO SCH (10:16)
[2016-08-24] MEDS: D5NS 1,000 ML IV SCH (10:17)
[2016-08-24] MEDS ORDERED: WATER FOR IRRIG STERILE IR ONE (10:21)
--- NOTE | 2016-08-24 10:31 | Anesthesia Day of Surgery ---
Anesthesia Day of Surgery - Day of Surgery Patient Examined: Yes Patient H&P Reviewed: Yes Patient is NPO: Yes
--- NOTE | 2016-08-24 10:39 | Anesthesia Consultation ---
Anesthesia Consult and Med Hx Date of service: 08/24/16 - Airway Anesthetic Teeth Evaluation: Poor (missing upper front teeth) ROM Head & Neck: Adequate Mental/Hyoid Distance: Adequate Mallampati Class: Class III Intubation Access Assessment: Possibly Difficult - Pulmonary Exam CTA: Yes - Cardiac Exam Cardiac Exam: RRR - Pre-Operative Health Status ASA Pre-Surgery Classification: ASA3 Proposed Anesthetic Plan: MAC - Pulmonary Hx Smoking: Yes (CIGARETTES 2 PPD X 34 YRS, QUIT 3 WKS AGO) Hx Asthma: No SOB: Yes COPD: Yes (on breathing treatment) Home Oxygen Therapy: No Hx Pneumonia: No Hx Sleep Apnea: No (High risk for MONICA) - Cardiovascular System Hx Hypertension: Yes (FOR 18 YRS) Hx Heart Attack/AMI: No - Central Nervous System Hx Seizures: No CVA: No Hx Psychiatric Problems: Yes (PTSD, Depression, Personality Disorder, Sleep Disorder) - Gastrointestinal Hx Gastroesophageal Reflux Disease: Yes (on Nexium) - Endocrine Hx Renal Disease: No Hx End Stage Renal Disease: No Hx Liver Disease: No Hx Non-Insulin Dependent Diabetes: No Hx Hypothyroidism: Yes (X 18 YRS) - Hematic Hx Anemia: Yes (Transfused 2 U 08/22/16) - Other Systems Hx Alcohol Use: Yes (2 BEERS PER DAY) Hx Cancer: No Hx Obesity: Yes - Additional Comments Anesthesia Medical History Comments: Hx of ear surgery as a child, stated that " Anesthesiologist gave too much inhalational gas, it caused damage to his nasal chords"
[2016-08-24] MEDS ORDERED: DIPRIVAN 10 MG/ML IV ONE (10:43)
[2016-08-24] MEDS ORDERED: NACL 0.9% 1000 ML 1,000 ML IV SCH (11:00)
--- NOTE | 2016-08-24 11:27 | Post Anesthesia Evaluation ---
- Post Anesthesia Evaluation Patient Participated: Yes Airway Patent: Yes Stable Respiratory Function: Yes Temp > 96.8F: Yes Pain Manageable: Yes Adequeate Hydration: Yes Anesthesia Complications: No Block Receding Appropriately: Not Applicable
--- NOTE | 2016-08-24 11:44 | Gastroenterology Progress Note ---
Assessment and Plan Abdominal pain Acute gastrointestinal bleeding History of constipation progressive today. Plan: Continue proton pump inhibitors. Monitor hemoglobin and hematocrit. Scheduled patient for endoscopic assessment this a.m. Continue fluid resuscitation. Additional recommendations will be made depending on the results of endoscopy Subjective Date of service: 08/24/16 Principal diagnosis: epigastric pain, nausea vomiting, acute gastrointestinal bleeding. Interval history: Overnight patient reports continuing epigastric discomfort. He also continues to have persistent nausea. The pain is mostly crampy in character per patient. He also has observed some blood in his stool sometime last night. Objective - Constitutional Vitals: Temp Pulse Resp BP Pulse Ox 98.1 F 101 H 20 148/86 98 08/24/16 11:07 08/24/16 11:32 08/24/16 11:32 08/24/16 11:32 08/24/16 11:32 General appearance: no acute distress, well-nourished, obese - EENT Eyes: PERRL, EOM intact ENT: hearing intact, clear oral mucosa, dentition normal - Neck Neck: supple, normal ROM, no rigidity, no enlarged thyroid, no masses or JVD - Respiratory Respiratory effort: normal Respiratory: bilateral: CTA, negative: diminished, rales, rhonchi, wheezing - Breasts Breasts: deferred - Cardiovascular Rhythm: regular Heart Sounds: Present: S1 & S2. Absent: systolic murmur, diastolic murmur, rub - Extremities Extremities: no ischemia, pulses intact, pulses symmetrical, Full ROM Extremity abnormal: edema (trace lower extremity edema) - Gastrointestinal General gastrointestinal: Present: soft, tender, normal bowel sounds. Absent: distended, hepatomegaly, splenomegaly, mass Rectal Exam: deferred - Integumentary Integumentary: Present: clear, warm, dry. Absent: erythema, rash - Musculoskeletal Musculoskeletal: normal - Neurologic Neurological: alert and oriented x3, oriented to person, oriented to place, oriented to time - Psychiatric Psychiatric: appropriate mood/affect, intact judgment & insight - Labs CBC & Chem 7: 08/24/16 05:18 08/22/16 07:20 Labs: Laboratory Results - last 24 hr 08/23/16 08/24/16 08:10 05:18 WBC 6.2 RBC 2.87 L Hgb 9.1 L Hct 27.1 L MCV 94 MCH 32 MCHC 34 RDW 15.6 H Plt Count 277 POC Glucose 107 H - Imaging x-ray: image reviewed CT scan: image reviewed Ultrasound: image reviewed
--- NOTE | 2016-08-24 11:53 | Operative Report ---
Operative Report Operative Report: Date of procedure: 08/24/2016 Procedure: Esophagogastroduodenoscopy with multiple mucosal biopsies Attending physician: Kiko To MD [employer] Specialist: Kiko To MD Indication: Patient is a 46-year-old male who presented with severe epigastric pain nausea vomiting and acute gastrointestinal bleeding with associated anemia. An upper endoscopy is done to assess patient regarding the cause of his symptoms so that treatment may be directed based on the findings. Consent: Informed consent was obtained after advising the patient and family regarding nature of this procedure, its indications, potential benefits as well as possible complications including but not limited to bleeding perforation and adverse reaction to medication, infection as well as other cardiopulmonary complications. An informed written and verbal consent was then obtained after due opportunity was provided for questions and answers. Monitoring: Patient was monitored continuously with pulse oximetry and electrocardiographic recordings as well as blood pressure recordings. Vital signs remained stable throughout this procedure with no untoward events. Preoperative assessment: Patient was assessed immediately prior to this procedure for capacity to tolerate monitored anesthesia care and moderate sedation as well as general anesthesia. Patient's ASA classification is 2, Mallampati class is 2, Hyomental distance is 3. Instrument: [employer] video endoscope Medications: Propofol given intravenously in divided doses. For details please refer to anesthesia records. Description of procedure: Patient was placed in the left lateral decubitus position after achieving sedation, the endoscope was introduced into the esophagus under direct vision. It was then advanced beyond the esophagus into the stomach and then beyond the stomach into the duodenum and to the second portion of the duodenum. It was subsequently withdrawn with careful inspection of all mucosal surfaces with the following findings. Findings: Z line was at 38 cm it was irregular. There was some changes in the proximal stomach to suggest underlying gastropathy. There was a large ulcer in the gastric antrum. It measured approximately 2 cm by about 2.5 cm. It had heaped up edges however it also was clean based. Biopsies of the antrum were obtained for histopathology. In the duodenal bulb, patient had an equally large ulcer measured approximately 2.5 cm by about 2.5 cm. Again the ulcer did not have any stigmata. These 2 findings likely represent the site of patient's bleeding. The endoscope was removed after the examination. Impression: Large ulcer in the gastric antrum. Large ulcer in the duodenal bulb. Changes in the proximal stomach as suggested possible underlying gastropathy. Plan: The ulcers may be due to frequent use of non-steroidal anti-inflammatory medications and may have caused the patient's bleeding. I have emphasized to the patient, that it is necessary that he completely avoids non steroidal for now. He should be on high-dose proton pump inhibitors for 8-12 weeks. In addition will also introduce Carafate suspension 1 g every 6 hours. He probably should be on Carafate for at least 4-6 weeks. The pathology report will be followed and additional treatment directed based on the pathology report. Patient must have a repeat endoscopy after 8-12 weeks of treatment to check for healing of these ulcers. I also suggested to patient that in light of his anemia, he may still benefit from a colonoscopic assessment since he has never had one. This however can be done as an outpatient. I have also emphasized to patient the absolute necessity for compliance with his medications in light of the endoscopic findings. It is absolutely imperative that patient must take his medications. It is equally imperative that patient was avoid non-steroidal's. These have been emphasized in full detail to patient. The risk of taking non steroidals include further bleeding possible perforation and other adverse events. These have been explained in full measure to patient. Additional steps were taken in follow-up.
--- NOTE | 2016-08-24 15:28 | Discharge Summary ---
Providers - Providers Date of Admission: 08/21/16 18:10 Date of discharge: 08/24/16 Attending physician: RUBÉN BOWEN 08/22/16 09:49 Consult to Physician [CONS] Routine Consulting Provider: FAREED SCHWARTZ Reason For Exam: GI bleed Place consult to:: Dr. Schwartz Notified:: spoke with dr. schwartz Primary care physician: MAKE UP OPERATOR Hospitalization Condition: Stable Hospital course: Smoking cessation counseling done patient strongly advised to quit tobacco use, advised nicotine patch This and consequences of ongoing tobacco use explained to the patient verbalized understanding, spent 10 minutes counseling the patient Disposition: DISCHARGED TO HOME OR SELFCARE Exam - Constitutional Vitals: Temp Pulse Resp BP Pulse Ox 98.2 F 94 H 16 126/85 98 08/24/16 13:00 08/24/16 13:00 08/24/16 13:00 08/24/16 13:00 08/24/16 11:32 Plan Diet: low salt, advance as tolerated Special Instructions: smoking cessation Additional Instructions: Avoid NSAIDs aspirin and steroids. If you have severe epigastric pain or GI bleeding contact MD or go to emergency room Follow up with: PRIMARY CAREMD [Primary Care Provider] - 3-5 Days FAREED SCHWARTZ MD [Staff Physician] - 7 Days Forms: Accompanied Note Prescriptions: Pantoprazole [Protonix] 40 mg PO BID #30 tablet Sucralfate [Carafate] 1 gm PO Q6HR 30 Days
[2016-08-24 16:45] VITALS: BP 126/79
[2016-08-24] MEDS ORDERED: CARAFATE PO SCH (18:00)
== END 2016-08-24 18:10 | disposition home or self-care (01) | DRG 378 ==
LOC: ED 13:16 → 3A 18:10 → 2B-SURG 19:25
PROVIDERS: ADMIT Internal Medicine; ATTEND Internal Medicine
PROC: 0DB68ZX Excision of Stomach, Via Natural or Artificial Opening Endoscopic, Diagnostic (ICD-10-PCS; principal; 2016-08-24)
PROC: 0DB98ZX Excision of Duodenum, Via Natural or Artificial Opening Endoscopic, Diagnostic (ICD-10-PCS; 2016-08-24)
DX: K92.2 Gastrointestinal hemorrhage, unspecified (principal); D62 Acute posthemorrhagic anemia; K21.9 Gastro-esophageal reflux disease without esophagitis; J45.909 Unspecified asthma, uncomplicated; J44.9 Chronic obstructive pulmonary disease, unspecified; E03.9 Hypothyroidism, unspecified; I10 Essential (primary) hypertension; M19.90 Unspecified osteoarthritis, unspecified site; E05.90 Thyrotoxicosis, unspecified without thyrotoxic crisis or storm; E78.00 Pure hypercholesterolemia, unspecified; F32.9 Major depressive disorder, single episode, unspecified; F17.210 Nicotine dependence, cigarettes, uncomplicated; I25.10 Atherosclerotic heart disease of native coronary artery without angina pectoris; F29 Unspecified psychosis not due to a substance or known physiological condition; G89.29 Other chronic pain; Z88.0 Allergy status to penicillin; Z98.890 Other specified postprocedural states; Z79.899 Other long term (current) drug therapy
CPT/HCPCS: 36415; 74177; 80053; 80320; 82140; 82271; 82962; 83690; 85014; 85018; 85025; 85027; 85610; 85730; 86850; 86900; 86901; 86920; 88305; 88342; 93005; 93010; 94640; 94760; 96361; 96374; 96375; 96376; C9113; G0480; J1170; J2270; J2405; J2704; J7030; J7042; J7050; P9016; Q9967

== ENCOUNTER 2016-10-18 11:07 | Day surgery (SDC) | payer MEDICARE ==
[2016-10-18] MEDS ORDERED: NACL 0.9% 1000 ML 1,000 ML IV SCH (13:00)
[2016-10-18] MEDS ORDERED: NACL 0.9% NEBU ONE (13:43)
[2016-10-18] MEDS ORDERED: PROVENTIL IH NR (13:45)
[2016-10-18] MEDS ORDERED: WATER FOR IRRIG STERILE ONE (14:15)
[2016-10-18] MEDS ORDERED: WATER FOR IRRIG STERILE IR ONE (14:15)
--- NOTE | 2016-10-18 14:18 | Anesthesia Consultation ---
Anesthesia Consult and Med Hx Date of service: 10/18/16 - Airway Anesthetic Teeth Evaluation: Poor ROM Head & Neck: Adequate Mental/Hyoid Distance: Inadequate Mallampati Class: Class III Intubation Access Assessment: Possibly Difficult - Pulmonary Exam CTA: No (wheezing bilaterally) - Cardiac Exam Cardiac Exam: RRR - Pre-Operative Health Status ASA Pre-Surgery Classification: ASA3 Proposed Anesthetic Plan: MAC - Pulmonary Hx Smoking: Yes (CIGARETTES 2 PPD X 34 YRS - current smoker) Hx Asthma: No SOB: Yes COPD: Yes Home Oxygen Therapy: No Hx Pneumonia: No Hx Sleep Apnea: No (High risk for MONICA) - Cardiovascular System Hx Hypertension: Yes Hx Heart Attack/AMI: No Hx Peripheral Vascular Disease: Yes - Central Nervous System Hx Neuromuscular Disorder: Yes (spina bifida uses walker, spinal stenosis) Hx Seizures: No CVA: No Hx Psychiatric Problems: Yes (PTSD, Depression, Personality Disorder, Sleep Disorder) - Gastrointestinal Hx Ulcer: Yes (BLEEDING ULCERS) Hx Gastroesophageal Reflux Disease: Yes (on Nexium) - Endocrine Hx Renal Disease: No Hx End Stage Renal Disease: No Hx Liver Disease: No Hx Non-Insulin Dependent Diabetes: No Hx Hypothyroidism: Yes - Hematic Hx Anemia: Yes (Transfused 2 U 08/22/16) - Other Systems Hx Alcohol Use: Yes (2 BEERS PER DAY) Hx Cancer: No Hx Obesity: Yes - Additional Comments Anesthesia Medical History Comments: high cholesterol. Patient has bilateral wheezing. Treated with Albuterol nebulizer prior to procedure.
--- NOTE | 2016-10-18 14:19 | Anesthesia Day of Surgery ---
Anesthesia Day of Surgery - Day of Surgery Patient Examined: Yes Patient H&P Reviewed: Yes Patient is NPO: Yes
[2016-10-18] MEDS ORDERED: DIPRIVAN 10 MG/ML IV ONE ×4 (14:29→15:15)
[2016-10-18] MEDS ORDERED: XYLOCAINE MPF 2% ONE (14:33)
--- NOTE | 2016-10-18 14:56 | Post Anesthesia Evaluation ---
- Post Anesthesia Evaluation Patient Participated: Yes Airway Patent: Yes Stable Respiratory Function: Yes Nausea/Vomiting: No Temp > 96.8F: Yes Pain Manageable: Yes Adequeate Hydration: Yes Anesthesia Complications: No Block Receding Appropriately: Not Applicable Patient on Ventilator: No
--- NOTE | 2016-10-18 15:15 | Operative Report ---
Operative Report Operative Report: Date of procedure: 10/18/2016 Procedure: Colonoscopy with multiple hot biopsy polypectomies, polyp ablations. Attending physician: Kiko To MD Caretaker: Kiko To MD Indication: Patient is a 46-year-old male who presented with a personal history of colon polyps. A colonoscopy is done to evaluate patient so that treatment may be directed based on the findings. Consent: Informed consent was obtained after advising the patient and family regarding nature of this procedure, its indications, potential benefits as well as possible complications including but not limited to bleeding perforation and adverse reaction to medication, infection as well as other cardiopulmonary complications. An informed written and verbal consent was then obtained after due opportunity was provided for questions and answers. Monitoring: Patient was monitored continuously with pulse oximetry and electrocardiographic recordings as well as blood pressure recordings. Vital signs remained stable throughout this procedure with no untoward events. Preoperative assessment: Patient was assessed immediately prior to this procedure for capacity to tolerate monitored anesthesia care and moderate sedation as well as general anesthesia. Patient's ASA classification is 2, Mallampati class is 2, Hyomental distance is 3. Instrument: [employer] videocolonoscope Medications: Propofol given intravenously in divided doses. For details please refer to anesthesia records. Description of procedure: Patient was placed in the left lateral decubitus position after achieving sedation, a digital rectal examination was performed following which the colonoscope was introduced into the anal verge and advanced to the cecum which was identified by the cecal valve, the appendiceal orifice, as well as by the cecal strap and direct transillumination. The colonoscope was subsequently withdrawn with careful inspection of all mucosal surfaces. Patient tolerated this procedure well and was subsequently taken to the recovery room. The following findings were noted. Findings: There was some scattered thick liquid stool with solid particulate not undigested food matter seen in various sections of the colon. There were a few diverticula seen in the sigmoid colon and the descending colon. There were 3 polyps in the sigmoid colon these measured between 4-8 mm. 2 of the polyps was sessile 1 was flat which measured approximate 4 mm. All polyps were removed by hot biopsy polypectomy and retrieved. There was a diminutive flat polyp in the rectum. It was ablated. On the retroflex view at the anal verge patient had internal hemorrhoids. Impression: Multiple sigmoid colon polyps status post hot biopsy polypectomy. Diverticular disease of colon. Retained stool. Diminutive flat polyp in the rectum status post ablation. Plan: Follow pathology report. High-fiber diet. Repeat colonoscopy in 5 years.
[2016-10-18 15:49] VITALS: BP 134/90
--- NOTE | 2016-10-18 16:59 | Discharge Summary ---
Short Stay Discharge Plan Activity: advance as tolerated Weight Bearing Status: Weight Bear as Tolerated Diet: regular Additional Instructions: Post Sedation D/C Instructions When you return home you may resume your regular diet unless otherwise directed. -Go directly home from the hospital and rest quietly. You may resume normal activities tomorrow. -Do NOT drive, return to work, operate any machinery or make any important personal or business decisions today. -Do NOT drink any alcohol or take nerve or sleeping drugs. They add to the effects of the medicine still present in your body. Follow up with: FAREED DURAN MD [Primary Care Provider] - 7 Days
== END 2016-10-18 11:08 | disposition home or self-care (01) ==
LOC: GIO 11:07
PROVIDERS: ATTEND Internal Medicine Gastroenterology
DX: D12.5 Benign neoplasm of sigmoid colon (principal); K62.1 Rectal polyp; K57.30 Diverticulosis of large intestine without perforation or abscess without bleeding; K64.8 Other hemorrhoids; F17.210 Nicotine dependence, cigarettes, uncomplicated; J44.9 Chronic obstructive pulmonary disease, unspecified; I10 Essential (primary) hypertension; M48.00 Spinal stenosis, site unspecified; F43.10 Post-traumatic stress disorder, unspecified; F32.9 Major depressive disorder, single episode, unspecified; G47.9 Sleep disorder, unspecified; F60.9 Personality disorder, unspecified; K21.9 Gastro-esophageal reflux disease without esophagitis; E03.9 Hypothyroidism, unspecified; D64.9 Anemia, unspecified; E66.9 Obesity, unspecified; Z68.36 Body mass index [BMI] 36.0-36.9, adult; Z72.89 Other problems related to lifestyle; Z79.899 Other long term (current) drug therapy
CPT/HCPCS: 45384; 45388; 88305; J2704; J7030

== ENCOUNTER 2016-12-27 09:26 | Day surgery (SDC) | payer MEDICARE ==
[2016-12-27] MEDS ORDERED: NACL 0.9% 1000 ML 1,000 ML IV SCH (10:00)
[2016-12-27] MEDS ORDERED: PROVENTIL IH NR (10:30)
--- NOTE | 2016-12-27 10:36 | Operative Report ---
Operative Report Operative Report: Operative Report: Date of procedure: 12/27/2016 Procedure: Esophagogastroduodenoscopy with multiple mucosal biopsies Attending physician: Kiko To MD Skinning Machine Feeder: Kiko To MD Indication: Patient is a -year-old male who presented with a history of epigastric pain with bloating and intestinal gas. He also has a history gastric ulcer disease. Patient is status post treatment for more than 8-12 weeks now. An upper endoscopy is done to assess patient and check for healing of the ulcers so that treatment may be directed based on the findings. Consent: Informed consent was obtained after advising the patient and family regarding nature of this procedure, its indications, potential benefits as well as possible complications including but not limited to bleeding perforation and adverse reaction to medication, infection as well as other cardiopulmonary complications. An informed written and verbal consent was then obtained after due opportunity was provided for questions and answers. Monitoring: Patient was monitored continuously with pulse oximetry and electrocardiographic recordings as well as blood pressure recordings. Vital signs remained stable throughout this procedure with no untoward events. Preoperative assessment: Patient was assessed immediately prior to this procedure for capacity to tolerate monitored anesthesia care and moderate sedation as well as general anesthesia. Patient's ASA classification is 2, Mallampati class is 2, Hyomental distance is 3. Instrument: KelDocn video endoscope Medications: Propofol given intravenously in divided doses. For details please refer to anesthesia records. Description of procedure: Patient was placed in the left lateral decubitus position after achieving sedation, the endoscope was introduced into the esophagus under direct vision. It was then advanced beyond the esophagus into the stomach and then beyond the stomach into the duodenum and to the second portion of the duodenum. It was subsequently withdrawn with careful inspection of all mucosal surfaces with the following findings. Findings: Esophagus was relatively normal however patient had an irregular Z line at 38 cm. There was a 2 cm sliding hiatal hernia seen on entry into the stomach. There was erythema and erosions in the gastric antrum. There is a healing gastric ulcer in the antrum which was clean based. Biopsies of the antrum were obtained for histopathology. There was a large duodenal ulcer in the distal aspect of the duodenal bulb causing deformity of the duodenal bulb and partial outlet obstruction at the duodenal bulb level just before the C- loop. There was significant surrounding mucosal edema. There was erythema and erosions also seen in the proximal duodenal bulb. Biopsies of the antrum were obtained for histopathology. The endoscope was removed after completing the examination. Impression: Irregular Z line. Hiatal hernia. Gastric ulcer disease. Large duodenal bulb ulcer Mucosal changes suggestive of gastritis. Mucosal changes suggestive of duodenitis Plan: Follow pathology report. Continue treatment with proton pump inhibitors Patient advised again to avoid non-steroidal anti-inflammatory medications which he confirmed that he was still taking. Still will repeat an endoscopy in 8 weeks on proton pump inhibitors to check for healing or resolution of the ulcers. Direct additional treatment based on the pathology report.
--- NOTE | 2016-12-27 10:42 | Anesthesia Day of Surgery ---
Anesthesia Day of Surgery - Day of Surgery Patient Examined: Yes Patient H&P Reviewed: Yes Patient is NPO: Yes
--- NOTE | 2016-12-27 10:43 | Anesthesia Consultation ---
Anesthesia Consult and Med Hx Date of service: 12/27/16 - Airway Anesthetic Teeth Evaluation: Poor ROM Head & Neck: Adequate Mental/Hyoid Distance: Inadequate Mallampati Class: Class III Intubation Access Assessment: Possibly Difficult - Pulmonary Exam CTA: Yes (sl wheeze neb tx ordered) - Cardiac Exam Cardiac Exam: RRR - Pre-Operative Health Status ASA Pre-Surgery Classification: ASA3 Proposed Anesthetic Plan: General, MAC - Pulmonary Hx Smoking: Yes Hx Asthma: Yes SOB: Yes COPD: Yes Hx Pneumonia: No Hx Sleep Apnea: No (High risk for [place]) - Cardiovascular System Hx Hypertension: Yes Hx Heart Attack/AMI: No Hx Peripheral Vascular Disease: Yes - Central Nervous System Hx Neuromuscular Disorder: Yes (spina bifida uses walker, spinal stenosis) Hx Seizures: No CVA: No Hx Psychiatric Problems: Yes (PTSD, Depression, Personality Disorder, Sleep Disorder) - Gastrointestinal Hx Ulcer: Yes (BLEEDING ULCERS) Hx Gastroesophageal Reflux Disease: Yes (on Nexium) - Endocrine Hx Renal Disease: No Hx End Stage Renal Disease: No Hx Liver Disease: No Hx Non-Insulin Dependent Diabetes: No Hx Hypothyroidism: Yes - Hematic Hx Anemia: Yes (Transfused 2 U 08/22/16) - Other Systems Hx Alcohol Use: Yes (2 BEERS PER DAY) Hx Cancer: No Hx Obesity: Yes
[2016-12-27] MEDS ORDERED: DIPRIVAN 10 MG/ML IV ONE ×2 (12:44)
[2016-12-27 14:26] VITALS: BP 142/81
[2016-12-27] MEDS ORDERED: WATER FOR IRRIG STERILE IR ONE (14:56)
--- NOTE | 2016-12-27 15:21 | Discharge Summary ---
Short Stay Discharge Plan Activity: advance as tolerated Weight Bearing Status: Weight Bear as Tolerated Diet: regular Additional Instructions: Post Sedation D/C Instructions When you return home you may resume your regular diet unless otherwise directed. -Go directly home from the hospital and rest quietly. You may resume normal activities tomorrow. -Do NOT drive, return to work, operate any machinery or make any important personal or business decisions today. -Do NOT drink any alcohol or take nerve or sleeping drugs. They add to the effects of the medicine still present in your body. Follow up with Dr. To to obtain pathology results and treatment plan. Follow up with: FAREED DURAN MD [Primary Care Provider] - 7 Days
== END 2016-12-27 09:27 | disposition home or self-care (01) ==
LOC: GIO 09:26
PROVIDERS: ATTEND Internal Medicine Gastroenterology
DX: K25.9 Gastric ulcer, unspecified as acute or chronic, without hemorrhage or perforation (principal); K22.8 Other specified diseases of esophagus; K44.9 Diaphragmatic hernia without obstruction or gangrene; K26.9 Duodenal ulcer, unspecified as acute or chronic, without hemorrhage or perforation; F17.210 Nicotine dependence, cigarettes, uncomplicated; J45.909 Unspecified asthma, uncomplicated; J44.9 Chronic obstructive pulmonary disease, unspecified; I10 Essential (primary) hypertension; F43.10 Post-traumatic stress disorder, unspecified; F32.9 Major depressive disorder, single episode, unspecified; K21.9 Gastro-esophageal reflux disease without esophagitis; G47.9 Sleep disorder, unspecified; F60.9 Personality disorder, unspecified; D64.9 Anemia, unspecified; E66.9 Obesity, unspecified; Z68.35 Body mass index [BMI] 35.0-35.9, adult; Z72.89 Other problems related to lifestyle
CPT/HCPCS: 43239; 88305; 88342; J2704; J7030

== ENCOUNTER 2017-04-14 10:53 | Day surgery (SDC) | payer MEDICARE ==
[2017-04-14] MEDS ORDERED: DIPRIVAN 10 MG/ML IV ONE (11:52)
[2017-04-14] MEDS ORDERED: NACL 0.9% 1000 ML 1,000 ML ONE (12:09)
[2017-04-14] MEDS ORDERED: DUONEB *Not for PRN Use IH ONE (12:10)
--- NOTE | 2017-04-14 12:39 | History and Physical Report ---
History of Present Illness Date of examination: 04/14/17 Date of admission: 04/14/2017 Chief complaint: Past history of gastric ulcer, epigastric pain and nausea vomiting. History of present illness: Patient is a 47-year-old male with a past history of gastric ulcer who has been treated for about 3 months. Patient presents for surveillance endoscopy to check for healing of the gastric ulcer. Today however he complains of persistent epigastric pain and nausea vomiting. In the past he was using nonsteroidals but denies using them recently. Past History Past Medical History: anemia, COPD, hypertension Past Surgical History: Other (had colonoscopy with history of refer colon polyps tubular adenoma.Had endoscopy in October of this year that showed gastric ulcer. Also had right in her ear surgery. History of spina bifida patient had deafness in the right ear. History of depression.) Social history: smoking. denies: alcohol abuse Family history: hypertension Medications and Allergies Allergies Allergy/AdvReac Type Severity Reaction Status Date / Time Penicillins Allergy Unknown Verified 10/31/13 18:38 Home Medications Medication Instructions Recorded Confirmed Last Taken Type Fluticasone/Salmeterol [Advair 1 puff PO QDAY 10/31/13 12/27/16 12/26/16 History Diskus 250-50 mcg] Levothyroxine [Synthroid] 100 mcg PO QDAY 10/31/13 12/27/16 12/26/16 History Lisinopril [Zestril TAB] 40 mg PO QDAY 10/31/13 12/27/16 12/27/16 07:00 History QUEtiapine [SEROquel] 300 mg PO QHS 10/31/13 12/27/16 12/26/16 History amLODIPine [Norvasc] 10 mg PO QDAY 10/31/13 12/27/16 12/27/16 07:00 History risperiDONE [RisperDAL] 2 mg PO QHS 10/31/13 12/27/16 12/26/16 History HYDROcodone/APAP 10-325 [[place] 1 each PO Q6HR PRN #12 tablet 11/01/13 12/27/16 12/26/16 Rx 10-325 mg TAB] Ipratropium/Albuterol Sulfate 3 ml IH BID PRN 10/01/14 12/27/16 12/26/16 21:00 History [Iprat-Albut 0.5-3(2.5) mg/3 ml] Topiramate [Topamax TAB] 50 mg PO QHS 10/01/14 12/27/16 12/26/16 21:00 History carBAMazepine [TEGretol] 200 mg PO Q12HR 10/01/14 12/27/16 12/26/16 21:00 History Pravastatin 1 mg PO QHS 08/21/16 12/27/16 12/26/16 History Xanax TAB 1 mg PO TID PRN 08/21/16 12/27/16 12/26/16 History Pantoprazole [Protonix] 40 mg PO BID #30 tablet 08/24/16 12/27/16 12/26/16 Rx Sucralfate [Carafate] 1 gm PO Q6HR 30 Days 08/24/16 12/27/16 12/26/16 Rx ALBUTEROL NEB's [Proventil 0.083% 2.5 mg IH QDAY PRN 12/27/16 12/27/16 Unknown History NEBS] Review of Systems All systems: negative Exam - Constitutional Vitals: Temp Pulse Resp BP Pulse Ox 97.9 F 98 H 26 H 141/73 92 04/14/17 12:21 04/14/17 12:21 04/14/17 12:21 04/14/17 12:21 04/14/17 12:21 General appearance: Present: no acute distress, well-nourished - EENT Eyes: Present: PERRL ENT: hearing intact, clear oral mucosa - Neck Neck: Present: supple, normal ROM - Respiratory Respiratory effort: normal Respiratory: bilateral: CTA - Cardiovascular Heart Sounds: Present: S1 & S2. Absent: rub, click - Extremities Extremities: pulses symmetrical, No edema Peripheral Pulses: within normal limits - Abdominal General gastrointestinal: Present: soft, non-tender, non-distended, normal bowel sounds Male genitourinary: Present: normal - Integumentary Integumentary: Present: clear, warm, dry - Musculoskeletal Musculoskeletal: gait normal, strength equal bilaterally - Psychiatric Psychiatric: appropriate mood/affect, intact judgment & insight - Neurologic Neurologic: CNII-XII intact, moves all extremities Assessment and Plan Personal history of gastric ulcer Epigastric pain Nausea vomiting. Plan: An upper endoscopy be done to check for healing of gastric ulcer and direct additional treatment based on the findings.
--- NOTE | 2017-04-14 12:42 | Operative Report ---
Operative Report Operative Report: Date of procedure: 04/14/2017 Procedure: Esophagogastroduodenoscopy with multiple mucosal biopsies Attending physician: Kiko To MD Diploma Maker: Kiko To MD Indication: Patient is a 47-year-old male with past history of gastric ulcer who presents for surveillance endoscopy to check for healing of the gastric ulcer. Consent: Informed consent was obtained after advising the patient and family regarding nature of this procedure, its indications, potential benefits as well as possible complications including but not limited to bleeding perforation and adverse reaction to medication, infection as well as other cardiopulmonary complications. An informed written and verbal consent was then obtained after due opportunity was provided for questions and answers. Monitoring: Patient was monitored continuously with pulse oximetry and electrocardiographic recordings as well as blood pressure recordings. Vital signs remained stable throughout this procedure with no untoward events. Preoperative assessment: Patient was assessed immediately prior to this procedure for capacity to tolerate monitored anesthesia care and moderate sedation as well as general anesthesia. Patient's ASA classification is 2, Mallampati class is 2, Hyomental distance is 3. Instrument: Picodeonn video endoscope Medications: Propofol given intravenously in divided doses for details please refer to anesthesia records. Description of procedure: Patient was placed in the left lateral decubitus position after achieving sedation, the endoscope was introduced into the esophagus under direct vision. It was then advanced beyond the esophagus into the stomach and then beyond the stomach into the duodenum and to the second portion of the duodenum. It was subsequently withdrawn with careful inspection of all mucosal surfaces with the following findings. Findings: Esophagus was normal. The Z line was irregular at 38 cm with a small sliding hiatal hernia. There was retained vegetable matter in the stomach. The gastric antrum had a few erosions and appeared friable. The antrum was partially deformed. There however was no discrete ulcers seen. Previously noted ulcers appeared to have healed completely. The pylorus was patulous. There was vegetable matter in the duodenal bulb. The rest of the examination was normal to the second portion of the duodenum. Impression: Irregular Z line. Small hiatal hernia. Deformed antrum with erosions in the antrum. Friable gastric antral mucosa. Retained vegetable contents in the stomach and the duodenum Plan: Biopsies were obtained from the antrum for histopathology. Will follow the pathology report. Again patient instructed to continue to avoid non- steroidals. For now, will continue proton pump inhibitors as the patient still has mucosal changes that may suggest underlying gastritis. Additional recommendations will be made depending on the findings on the pathology report.
--- NOTE | 2017-04-14 12:48 | Anesthesia Consultation ---
Anesthesia Consult and Med Hx Date of service: 04/14/17 - Airway Anesthetic Teeth Evaluation: Poor ROM Head & Neck: Adequate Mental/Hyoid Distance: Adequate Mallampati Class: Class II Intubation Access Assessment: Probably Good - Pulmonary Exam CTA: No (exp wheeze) - Cardiac Exam Cardiac Exam: RRR - Pre-Operative Health Status ASA Pre-Surgery Classification: ASA3 Proposed Anesthetic Plan: MAC - Pulmonary Hx Smoking: Yes Hx Asthma: Yes COPD: Yes - Cardiovascular System Hx Hypertension: Yes - Central Nervous System Hx Neuromuscular Disorder: Yes (spina bifida uses walker, spinal stenosis) Hx Psychiatric Problems: Yes (PTSD, Depression, Personality Disorder, Sleep Disorder) - Gastrointestinal Hx Ulcer: Yes (BLEEDING ULCERS) Hx Gastroesophageal Reflux Disease: Yes (on Nexium) - Endocrine Hx Hypothyroidism: Yes - Hematic Hx Anemia: Yes - Other Systems Hx Alcohol Use: Yes (2 BEERS PER DAY) Hx Obesity: Yes
--- NOTE | 2017-04-14 12:48 | Anesthesia Day of Surgery ---
Anesthesia Day of Surgery - Day of Surgery Patient Examined: Yes Patient H&P Reviewed: Yes Patient is NPO: Yes
--- NOTE | 2017-04-14 12:57 | Discharge Summary ---
Short Stay Discharge Plan Activity: advance as tolerated Weight Bearing Status: Weight Bear as Tolerated Diet: regular Follow up with: FAREED DURAN MD [Primary Care Provider] - 7 Days
[2017-04-14] MEDS ORDERED: PROVENTIL IH NR (13:00)
[2017-04-14 13:29] VITALS: BP 145/89
[2017-04-14] MEDS ORDERED: NACL 0.9% 1000 ML 1,000 ML IV SCH (14:00)
[2017-04-14] MEDS ORDERED: WATER FOR IRRIG STERILE IR ONE (14:41)
== END 2017-04-14 10:54 | disposition home or self-care (01) ==
LOC: GIO 10:53
PROVIDERS: ATTEND Internal Medicine Gastroenterology
DX: K44.9 Diaphragmatic hernia without obstruction or gangrene (principal); K22.8 Other specified diseases of esophagus; K21.9 Gastro-esophageal reflux disease without esophagitis; K29.50 Unspecified chronic gastritis without bleeding; J44.9 Chronic obstructive pulmonary disease, unspecified; E66.9 Obesity, unspecified; E03.9 Hypothyroidism, unspecified; F17.210 Nicotine dependence, cigarettes, uncomplicated; I10 Essential (primary) hypertension; Z88.0 Allergy status to penicillin; Z72.89 Other problems related to lifestyle
CPT/HCPCS: 43239; 88305; 88342; J2704; J7030